=== PATIENT | male | born 1975 | race Caucasian/White ===

== ENCOUNTER 2021-09-11 13:00 | Outpatient (CLI) | payer BC | END 2021-09-11 13:30 | disposition home or self-care (01) | LOC: ASH CLINIC 13:00 | PROVIDERS: ATTEND General Practice | DX: U07.1 COVID-19 (principal); Z23 Encounter for immunization ==

== ENCOUNTER 2021-10-01 20:04 | Emergency (ER) | payer BC ==
[~2021-10-01] VITALS: Ht 190.5 cm; Wt 95.3 kg
[2021-10-01] MEDS ORDERED: KETO10TA2 PO (23:46)
[2021-10-01] MEDS ORDERED: CIPRO500 MG PO (23:46)
== END 2021-10-02 00:39 | disposition home or self-care (01) ==
LOC: ER 20:04 → EDSEX 20:47 → ER 20:47
DX: N50.811 Right testicular pain (principal); N44.2 Benign cyst of testis